=== PATIENT | male | born 1940 | race Caucasian/White ===

== ENCOUNTER 2019-08-17 10:49 | Emergency (ER) | payer MEDICARE, BC, OTHER ==
[~2019-08-17] VITALS: Ht 170.2 cm; Wt 107.0 kg
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
--- NOTE | 2019-08-17 11:00 | NUR ---
SEEN AND EXAMINED BY DR EDGAR WITH NEW ORDERS.
--- NOTE | 2019-08-17 11:30 | NUR ---
MEDICATED FOR MITCHELL.
[2019-08-17] MEDS ORDERED: HYDROCODONE/APAP 10-325 MG TABLET PO ONE (11:45)
[2019-08-17] MEDS ORDERED: HYDROCODONE/APAP 10-325 MG TABLET ONE (11:48)
[2019-08-17 11:58] LABS: BASOPHILS # (AUTO) 0.1 K/uL (0.0-8.0); EOSINOPHILS # (AUTO) 0.1 K/uL (0.0-0.7); EOSINOPHILS % (AUTO) 0.9 % (0.0-7.0); HEMATOCRIT 49.6 % (36.7-47.1); HEMOGLOBIN 16.8 g/dL (12.5-16.3); LYMPHOCYTES # (AUTO) 1.2 K/uL (20.0-40.0); LYMPHOCYTES % (AUTO) 14.4 % (20.5-51.5); MEAN CORPUSCULAR HEMOGLOBIN 31.6 uug (23.8-33.4); MEAN CORPUSCULAR HGB CONC 34 g/dL (32.5-36.3); MEAN CORPUSCULAR VOLUME 93.3 fL (73.0-96.2); MONOCYTES # (AUTO) 0.4 K/uL (2.0-10.0); MONOCYTES % (AUTO) 4.9 % (0.0-11.0); NEUTROPHILS # (AUTO) 6.8 K/uL (1.8-8.9); NEUTROPHILS % (AUTO) 78.8 % (38.5-71.5); PLATELET COUNT (AUTO) 167 K/uL (152-348); RED BLOOD CELL COUNT(AUTO) 5.31 MIL/uL (4.06-5.63); WHITE BLOOD COUNT (AUTO) 8.6 K/uL (3.6-10.2)
--- NOTE | 2019-08-17 12:00 | NUR ---
TO CT SCAN FOR THE HEAD ASS ORDERED.
[2019-08-17 12:14] LABS: CREATININE 1.2 mg/dL (0.6-1.3)
[2019-08-17 12:19] LABS: BILIRUBIN,DIRECT 0.1 mg/dL (0.0-0.2); BILIRUBIN,TOTAL 0.4 mg/dL (0.2-1.0); TOTAL PROTEIN, SERUM 6.7 g/dL (6.4-8.2)
--- NOTE | 2019-08-17 14:00 | NUR ---
CT SCAN RESULT DISCUSSED TO PT BY MD. DISCHARGE INSTRUCTION GIVEN TO THE PT WITH GOOD UNDERSTANDING. DISCHARGED AMBULATORY ACCOMPANIED BY FAMILY. CONDITION IS STABLE.
[2019-08-17 14:44] VITALS: BP 123/67
== END 2019-08-17 14:00 | disposition home or self-care (01) ==
LOC: ER 10:49
DX: R51 Headache (principal); H16.0 Corneal ulcer; B48.8 Other specified mycoses; H44.001 Unspecified purulent endophthalmitis, right eye; I10 Essential (primary) hypertension; E11.9 Type 2 diabetes mellitus without complications; J45.909 Unspecified asthma, uncomplicated; E78.5 Hyperlipidemia, unspecified; Z88.5 Allergy status to narcotic agent; Z79.899 Other long term (current) drug therapy; Z79.82 Long term (current) use of aspirin; Z88.6 Allergy status to analgesic agent
CPT/HCPCS: 36415; 70030-TC; 70450; 85025; 85730; 93005; A4663